=== PATIENT | female | born 1985 | race American Indian/Alaskan Native ===

== ENCOUNTER 2017-07-05 18:17 | Emergency (ER) | payer MEDICARE ==
--- NOTE | 2017-07-05 18:34 | Emergency Department Report ---
Chief Complaint: Chest Pain Stated Complaint: CHEST PAIN/COUGH Time Seen by Provider: 07/05/17 18:31 - HPI History of Present Illness: pt c/o chest pain x 2 days. now with nasal congestion and cough - ROS Review of Systems: + congestion + cough + chest pain - Exam Physical Exam: obese female chest wall ttp MSE screening note: Focused history and physical exam performed. Due to findings the following was ordered: ekg, lab, xr ED Disposition for MSE Condition: Stable
[2017-07-05 18:36] VITALS: BP 114/74
[2017-07-05 18:58] LABS: Basophils % (Auto) 0.6 % (0.0-1.8); Eosinophils % (Auto) 4.3 % (0.0-4.3); Hematocrit 40.4 % (30.3-42.9); Hemoglobin 13.3 gm/dl (10.1-14.3); Mean Corpuscular HGB Conc 33 % (30-34); Mean Corpuscular Volume 79 fl (79-97); Platelet Count 195 K/mm3 (140-440); Red Blood Count 5.14 M/mm3 (3.65-5.03); Red Cell Distribution Width 15.4 % (13.2-15.2); White Blood Count 4.4 K/mm3 (4.5-11.0)
[2017-07-05 19:04] LABS: Mean Corpuscular Hemoglobin 26 pg (28-32)
[2017-07-05 19:21] LABS: Alanine Aminotransferase 16 units/L (7-56); Albumin 4.1 g/dL (3.9-5); Albumin/Globulin Ratio 1.2 %; Alkaline Phosphatase 93 units/L (35-129); Anion Gap 19 mmol/L; BUN/Creatinine Ratio 13.63; Blood Urea Nitrogen 15 mg/dL (7-17); Calcium 9.3 mg/dL (8.4-10.2); Carbon Dioxide 23 mmol/L (22-30); Chloride 105.6 mmol/L (98-107); Glucose 87 mg/dL (65-100); Potassium 4.2 mmol/L (3.6-5.0); Sodium 143 mmol/L (137-145); Total Protein 7.4 g/dL (6.3-8.2)
--- NOTE | 2017-07-05 21:11 | XRay Report ---
FINAL REPORT EXAM: XR CHEST ROUTINE 2V HISTORY: Chest Pain TECHNIQUE: Chest, PA and lateral PRIORS: None. FINDINGS: The heart size is normal. Mediastinal contours are normal. Pulmonary vasculature is not congested. The lungs are clear. There are no pleural effusion seen. There is no evidence of pneumothorax. IMPRESSION: There is no acute abnormality identified.
== END 2017-07-05 21:53 | disposition left against medical advice (07) ==
LOC: ED 18:17
DX: R07.9 Chest pain, unspecified (principal); R05 Cough; Z53.21 Procedure and treatment not carried out due to patient leaving prior to being seen by health care provider
CPT/HCPCS: 36415; 71020; 80053; 84484; 84703; 85025; 93005; 93010

== ENCOUNTER 2017-12-30 09:57 | Outpatient (CLI) | payer MEDICARE ==
--- NOTE | 2017-12-30 11:03 | XRay Report ---
RIGHT FOOT THREE VIEWS: 12/30/17 CLINICAL: Right foot pain. FINDINGS: Mild hallux valgus deformity and mild arthritis at the first MTP joint. Rest of the joint spaces are normal. No fracture or dislocation. Mild anterior soft tissue swelling of the forefoot. No soft tissue air or foreign body. IMPRESSION: Mild arthritis first MTP joint and mild nonspecific soft tissue swelling of the forefoot.
== END 2017-12-30 09:58 | disposition home or self-care (01) ==
LOC: SPVIMAG 09:57
PROVIDERS: ATTEND Orthopaedic Surgery Sports Medicine
DX: M18.9 Osteoarthritis of first carpometacarpal joint, unspecified (principal); M20.11 Hallux valgus (acquired), right foot

== ENCOUNTER 2020-01-16 09:31 | Emergency (ER) | payer MEDICARE ==
[2020-01-16 10:38] LABS: Basophils % (Auto) 0.5 % (0.0-1.8); Eosinophils # (Auto) 0.1 K/mm3 (0.0-0.4); Eosinophils % (Auto) 2.1 % (0.0-4.3); Hemoglobin 13.8 gm/dl (10.1-14.3); Lymphocytes # (Auto) 1.5 K/mm3 (1.2-5.4); Lymphocytes % (Auto) 25.8 % (13.4-35.0); Mean Corpuscular HGB Conc 32 % (30-34); Mean Corpuscular Volume 82 fl (79-97); Monocytes # (Auto) 0.5 K/mm3 (0.0-0.8); Monocytes % (Auto) 7.6 % (0.0-7.3); Platelet Count 226 K/mm3 (140-440); Red Blood Count 5.23 M/mm3 (3.65-5.03); Red Cell Distribution Width 15.8 % (13.2-15.2)
[2020-01-16 11:08] LABS: Alanine Aminotransferase 9 units/L (7-56); Albumin 3.8 g/dL (3.9-5); BUN/Creatinine Ratio 15; Blood Urea Nitrogen 17 mg/dL (7-17); Calcium 9.4 mg/dL (8.4-10.2); Hemolysis Index 27
--- NOTE | 2020-01-16 11:43 | Cat Scan Report ---
CT head without contrast INDICATION : syncope. TECHNIQUE: Axial imaging performed from the skull apex through the skull base without the use of con trast. All CT scans at this location are performed using CT dose reduction for ALARA by means of aut omated exposure control. COMPARISON: None FINDINGS: Parenchyma: No acute intracranial hemorrhage or parenchymal abnormality. Ventricles: There is a right frontal ventricular catheter with tip terminating in the anterior horn o f the left lateral ventricle. Ventricles are decompressed and appear symmetric. Soft tissues: Soft tissues including the orbits appear normal. Bones: No acute osseous abnormality. Sinuses: Sinuses and mastoid air cells are clear. IMPRESSION: No acute abnormality. Signer Name: Mamadou Haro MD Signed: 01/16/2020 11:39 AM Workstation Name: [id number]
--- NOTE | 2020-01-16 12:11 | Emergency Department Report ---
ED General Adult HPI - General Chief complaint: Syncope Stated complaint: PASSED OUT/LFT LEG SWELLING/PAIN Time Seen by Provider: 01/16/20 10:12 Source: patient Mode of arrival: Ambulatory Limitations: No Limitations - History of Present Illness Initial comments: Patient presents to the emergency department with a chief complaint of passing out. Patient states she was getting up to fix breakfast she began to feel lightheaded and passed out. Patient states she has a history of passing out as a child and when she was in her early 20s. Patient denies any shortness of breath or chest pain prior to or after the event. There is note of the patient having some left leg pain on the chart but the patient denies any pain. Patient also denies any shortness of breath, chest pain, or headache. Patient has a history of lupus and Meng's disease. -: Sudden Severity scale (0 -10): 0 Consistency: now resolved Improves with: none Worsens with: none Associated Symptoms: denies other symptoms Treatments Prior to Arrival: none - Related Data Home Medications Medication Instructions Recorded Confirmed Last Taken Mirtazapine [Remeron] 30 mg PO QHS 04/14/15 04/14/15 Unknown Olanzapine [ZyPREXA] 20 mg PO QHS 04/14/15 04/14/15 Unknown Venlafaxine [Effexor] 150 mg PO DAILY 04/14/15 04/14/15 Unknown clonazePAM 1 mg PO TID 04/14/15 04/14/15 Unknown risperiDONE [RisperiDONE] 2 mg PO QHS 04/14/15 04/14/15 Unknown Allergies Allergy/AdvReac Type Severity Reaction Status Date / Time Sulfa (Sulfonamide Allergy Angioedema Verified 04/14/15 01:27 Antibiotics) ED Review of Systems ROS: Stated complaint: PASSED OUT/LFT LEG SWELLING/PAIN Other details as noted in HPI Comment: All other systems reviewed and negative Constitutional: denies: chills, fever Eyes: denies: eye pain, eye discharge, vision change ENT: denies: ear pain, throat pain Respiratory: denies: cough, shortness of breath, wheezing Cardiovascular: denies: chest pain, palpitations Endocrine: no symptoms reported Gastrointestinal: denies: abdominal pain, nausea, diarrhea Genitourinary: denies: urgency, dysuria, discharge Musculoskeletal: denies: back pain, joint swelling, arthralgia Skin: denies: rash, lesions Neurological: denies: headache, weakness, paresthesias Psychiatric: denies: anxiety, depression Hematological/Lymphatic: denies: easy bleeding, easy bruising ED Past Medical Hx - Past Medical History Previous Medical History?: Yes Hx Hypertension: Yes Hx Psychiatric Treatment: Yes Additional medical history: lupus / fibromyalgia / addisons - Surgical History Past Surgical History?: Yes Hx Cholecystectomy: Yes Additional Surgical History: tubal ligation / knee surgeries x 6, c section - Social History Smoking Status: Current Every Day Smoker Substance Use Type: None - Medications Home Medications: Home Medications Medication Instructions Recorded Confirmed Last Taken Type Mirtazapine [Remeron] 30 mg PO QHS 04/14/15 04/14/15 Unknown History Olanzapine [ZyPREXA] 20 mg PO QHS 04/14/15 04/14/15 Unknown History Venlafaxine [Effexor] 150 mg PO DAILY 04/14/15 04/14/15 Unknown History clonazePAM 1 mg PO TID 04/14/15 04/14/15 Unknown History risperiDONE [RisperiDONE] 2 mg PO QHS 04/14/15 04/14/15 Unknown History ED Physical Exam - General Limitations: No Limitations General appearance: alert, in no apparent distress - Head Head exam: Present: atraumatic, normocephalic - Eye Eye exam: Present: normal appearance - ENT ENT exam: Present: mucous membranes moist - Neck Neck exam: Present: normal inspection - Respiratory Respiratory exam: Present: normal lung sounds bilaterally. Absent: respiratory distress - Cardiovascular Cardiovascular Exam: Present: regular rate, normal rhythm. Absent: systolic murmur, diastolic murmur, rubs, gallop - GI/Abdominal GI/Abdominal exam: Present: soft, normal bowel sounds. Absent: distended, tenderness - Extremities Exam Extremities exam: Present: normal inspection - Back Exam Back exam: Present: normal inspection - Neurological Exam Neurological exam: Present: alert, oriented X3, CN II-XII intact. Absent: motor sensory deficit - Psychiatric Psychiatric exam: Present: normal affect, normal mood - Skin Skin exam: Present: warm, dry, intact, normal color. Absent: rash ED Course Vital Signs 01/16/20 01/16/20 09:40 10:34 Temperature 98.9 F Pulse Rate 104 H 61 Respiratory 20 20 Rate Blood Pressure 99/58 Blood Pressure 115/68 [Left] O2 Sat by Pulse 100 100 Oximetry ED Medical Decision Making - Lab Data Result diagrams: 01/16/20 10:09 01/16/20 10:09 Lab Results 01/16/20 01/16/20 01/16/20 Range/Units 10:09 10:09 10:09 WBC 6.0 (4.5-11.0) K/mm3 RBC 5.23 H (3.65-5.03) M/mm3 Hgb 13.8 (10.1-14.3) gm/dl Hct 43.0 H (30.3-42.9) % MCV 82 (79-97) fl MCH 26 L (28-32) pg MCHC 32 (30-34) % RDW 15.8 H (13.2-15.2) % Plt Count 226 (140-440) K/mm3 Lymph % (Auto) 25.8 (13.4-35.0) % Piatt % (Auto) 7.6 H (0.0-7.3) % Eos % (Auto) 2.1 (0.0-4.3) % Baso % (Auto) 0.5 (0.0-1.8) % Lymph # 1.5 (1.2-5.4) K/mm3 Piatt # 0.5 (0.0-0.8) K/mm3 Eos # 0.1 (0.0-0.4) K/mm3 Baso # 0.0 (0.0-0.1) K/mm3 Seg Neutrophils % 64.0 (40.0-70.0) % Seg Neutrophils # 3.8 (1.8-7.7) K/mm3 Sodium 140 (137-145) mmol/L Potassium 4.1 (3.6-5.0) mmol/L Chloride 104.8 (98-107) mmol/L Carbon Dioxide 18 L (22-30) mmol/L Anion Gap 21 mmol/L BUN 17 (7-17) mg/dL Creatinine 1.1 (0.7-1.2) mg/dL Estimated GFR > 60 ml/min BUN/Creatinine Ratio 15 % Glucose 94 (65-100) mg/dL Calcium 9.4 (8.4-10.2) mg/dL Total Bilirubin 0.20 (0.1-1.2) mg/dL AST 13 (5-40) units/L ALT 9 (7-56) units/L Alkaline Phosphatase 84 (35-129) units/L Total Protein 6.6 (6.3-8.2) g/dL Albumin 3.8 L (3.9-5) g/dL Albumin/Globulin Ratio 1.4 % HCG, Qual Negative (Negative) - EKG Data -: EKG Interpreted by Me EKG shows normal: sinus rhythm Rate: normal - Radiology Data Radiology results: report reviewed - Medical Decision Making Results discussed with patient Repeat exam at 12 PM the patient's heart rate is 90 The patient reaffirms that she is taking all her medications Critical care attestation.: If time is entered above; I have spent that time in minutes in the direct care of this critically ill patient, excluding procedure time. ED Disposition Clinical Impression: Vasovagal episode Disposition: DC- TO HOME OR SELFCARE Is pt being admited?: No Does the pt Need Aspirin: No Condition: Stable Instructions: Syncope (ED) Additional Instructions: return if worse Referrals: PRIMARY CARE, [Primary Care Provider] - 3-5 Days [facility] [Provider Group] - 3-5 Days [facility] [Provider Group] - 3-5 Days Time of Disposition: 12:11
[2020-01-16 12:59] VITALS: BP 112/69
== END 2020-01-16 13:00 | disposition home or self-care (01) ==
LOC: ED 09:31
DX: R55 Syncope and collapse (principal); I10 Essential (primary) hypertension; F17.200 Nicotine dependence, unspecified, uncomplicated; Z88.2 Allergy status to sulfonamides; Z79.899 Other long term (current) drug therapy; Z90.49 Acquired absence of other specified parts of digestive tract; Z98.890 Other specified postprocedural states; Z98.51 Tubal ligation status
CPT/HCPCS: 36415; 70450; 80053; 84703; 85025; 93005; 93010; 99284